=== PATIENT | female | born 1955 | race Caucasian/White ===

== ENCOUNTER 2016-08-04 09:44 | Outpatient (CLI) | payer OTHER | END 2016-08-04 09:45 | disposition home or self-care (01) | DX: G47.33 Obstructive sleep apnea (adult) (pediatric) (principal) ==

== ENCOUNTER 2016-09-23 12:52 | Outpatient (CLI) | payer OTHER | END 2016-09-23 12:53 | disposition critical access hospital (66) | DX: R42 Dizziness and giddiness (principal) | CPT/HCPCS: A0425; A0427 ==

== ENCOUNTER 2016-09-23 13:16 | Emergency (ER) | payer OTHER ==
[2016-09-23] MEDS ORDERED: SODIUM CHLORIDE 0.9% 1,000 ML IV ONE (13:49)
[2016-09-23] MEDS ORDERED: diphenhydrAMINE INJ 50 MG/ML VIAL IVP STA (13:49)
[2016-09-23] MEDS ORDERED: MAGNESIUM SULFATE 2 GRAM 50 ML IV ONE ×2 (13:49→13:55)
[2016-09-23] MEDS ORDERED: PROCHLORPERAZINE 10 MG/2 ML VIAL IVP STA (13:49)
[2016-09-23] MEDS ORDERED: DEXAMETHASONE 10 MG/ML VIAL IVP STA (13:49)
[2016-09-23] MEDS ORDERED: KETOROLAC 60 MG/2 ML VIAL IVP STA (13:50)
[2016-09-23] MEDS ORDERED: DEXAMETHASONE 10 MG/ML VIAL ONE (13:55)
[2016-09-23] MEDS ORDERED: diphenhydrAMINE INJ 50 MG/ML VIAL ONE (13:55)
[2016-09-23] MEDS ORDERED: PROCHLORPERAZINE 10 MG/2 ML VIAL ONE (13:55)
[2016-09-23] MEDS ORDERED: KETOROLAC 30 MG/ML VIAL ONE (14:07)
[2016-09-23] MEDS ORDERED: KETOROLAC 30 MG/ML VIAL IVP STA (14:10)
== END 2016-09-23 15:36 | disposition home or self-care (01) ==
DX: R51 Headache (principal); I10 Essential (primary) hypertension; E78.00 Pure hypercholesterolemia, unspecified; I49.9 Cardiac arrhythmia, unspecified; M79.7 Fibromyalgia